=== PATIENT | female | born 1990 | race Caucasian/White ===

== ENCOUNTER 2022-07-06 10:56 | Emergency (ER) | payer OTHER, SELFPAY ==
[2022-07-06 11:03] VITALS: BP 139/92; PULSE 85; RESP 16; TEMP 36.9; O2SAT 98; BMI 31.6
[2022-07-06 12:36] VITALS: BP 122/85; PULSE 80; O2SAT 97
--- NOTE | 2022-07-06 12:47 | [facility].EDWNDL ---
Discharge Plan Disposition Patient Disposition: Home, Self-Care Condition: Good Referrals Follow up/Referrals: Cristian Dias MD [Primary Care Provider] - See instructions Clinical Impressions Clinical Impression: Hand laceration Instructions Patient Instructions: DI for Laceration Repair Discharge ED Provider: Mario Pruitt Wound/Laceration HPI General Chief Complaint: Wound/Laceration Stated Complaint: [id number] cut to left hand,home accident Time Seen by Provider: 07/06/22 12:00 Mode of Arrival: Ambulatory Source of Information: Patient Limitations: No Limitations Description of Symptoms (Recalled from ER Triage Doc. by RN): Laceration to L hand in first knuckle area. Pt reports cut her hand yesterday approx 5:30pm with a kitchen knife. Pt reports area keeps bleeding. History of Present Illness HPI narrative: Patient is a 32-year-old female who presents with a hand laceration. She states that yesterday at approximately 530 she was cutting a turkey when the knife slipped and it hit her left hand. She says it has been intermittently bleeding since then so she wanted to come in for evaluation. She does not remember her last tetanus. Denies any numbness or tingling into her hand. Denies any difficulty moving her hand. Denies any other injuries at this time. Related Data Allergies Allergy/AdvReac Type Severity Reaction Status Date / Time INGREDIENT: NO KNOWN - NO Allergy Unknown Uncoded 07/13/17 15:12 KNOWN DRUG ALLERGY [facility] Disclaimer: The information contained in this section may have been updated after the patient was seen, as this information can be updated by other users. Social History Smoking Status: Never smoker alcohol intake: current current occupational status: employed Travel in the last 8 weeks: None ROS Obtained: Yes All systems reviewed & no additional complaints except as documented A 14 point review of system was obtained and otherwise negative except per HPI Physical Exam General General appearance: alert and in no apparent distress Head Head exam: atraumatic, normocephalic and normal inspection Eye Eye exam: Present normal appearance, PERRL and EOMI ENT ENT exam: Present normal exam, normal oropharynx, mucous membranes moist, TM's normal bilaterally and normal external ear exam Neck Neck exam: Present normal inspection, full ROM and trachea midline; Absent meningismus or lymphadenopathy Chest Chest inspection: Present normal inspection and symmetric chest wall rise; Absent tenderness Respiratory Respiratory exam: Present normal lung sounds bilaterally; Absent respiratory distress Cardiovascular Cardiovascular exam: Present regular rate and normal rhythm; Absent JVD Abdominal Exam Abdominal exam: Present soft and normal bowel sounds; Absent distention, tenderness or guarding Extremities Exam Extremities exam: Present normal inspection, full ROM and normal capillary refill; Absent calf tenderness Expanded Upper Extremity Exam Left: Shoulder exam: Present full ROM and laceration (2 cm laceration to the left hand at the lateral aspect of the second MCP) Back Exam Back exam: Present normal inspection; Absent tenderness Neurological Exam Neurological exam: Present alert and oriented X3 Psychiatric Psychiatric exam: Present normal affect and normal mood Skin Skin exam: Present warm, dry, intact and normal color Lymphatic Lymphatic Findings: no adenopathy Medical Decision Making Medical Records Medical records reviewed: Yes I reviewed the patient's medical records. Terrance Inquiry Pt receiving controlled substance: No Vital Signs: 07/06/22 11:03 07/06/22 12:36 Temperature 98.4 F Temperature Source Oral Pulse Rate 80 Pulse Rate [Left Radial] 85 Respiratory Rate 16 Blood Pressure 122/85 Blood Pressure [Left Arm] 139/92 H Blood Pressure Mean [Left Arm] 107 Blood Pressure Source Automatic Cuff Blood Pressure Source [Left Arm]
[2022-07-06 13:06] VITALS: BP 122/85; PULSE 80; RESP 16; TEMP 36.9; O2SAT 97
== END 2022-07-06 13:06 | disposition home or self-care (01) ==
PROVIDERS: Emergency Provider Student in an Organized Health Care Education/Training Program; PCP Emergency Medicine
DX: S61.419A Laceration without foreign body of unspecified hand, initial encounter (principal); W26.0XXA Contact with knife, initial encounter; Y93.G3 Activity, cooking and baking; Z23 Encounter for immunization
CPT/HCPCS: 12001; 90471; 90715; 99283